=== PATIENT | male | born 1980 | race Caucasian/White ===

== ENCOUNTER 2016-09-29 07:16 | Emergency (ER) | payer OTHER ==
[~2016-09-29] VITALS: Ht 167.6 cm; Wt 124.3 kg
[~2016-09-29 07:16] MED LIST: BALSALAZIDE DI750 MG PO; CIPRO500 MG PO; FLAGYL500 MG PO; PREVACID30 MG PO; PRINZIDE 20-121 EACH PO; TYLENOL WITH C1 EACH PO; ZESTRIL,PRINIVI20 MG PO
[2016-09-29] MEDS ORDERED: ACIPHEX20 MG PO (07:56)
[2016-09-29] MEDS ORDERED: ONE DAILY FOR1 EACH PO (07:57)
[2016-09-29] MEDS ORDERED: ELAVIL10 MG PO (07:59)
[2016-09-29] MEDS ORDERED: FIORICET 50-301 EACH PO (09:12)
[2016-09-29 09:22] VITALS: BP 123/82
== END 2016-09-29 09:20 | disposition home or self-care (01) ==
LOC: EME 07:16
DX: G43.909 Migraine, unspecified, not intractable, without status migrainosus (principal); I10 Essential (primary) hypertension; Z87.891 Personal history of nicotine dependence
CPT/HCPCS: 99281; 99285; J1885; J2765; J7030

== ENCOUNTER 2017-12-10 17:11 | Observation (INO) | payer OTHER ==
[~2017-12-10] VITALS: Ht 170.2 cm; Wt 131.8 kg
[~2017-12-10 17:11] MED LIST changes: +ACIPHEX20 MG PO; +ELAVIL10 MG PO; +FIORICET 50-301 EACH PO; +ONE DAILY FOR1 EACH PO; -PRINZIDE 20-121 EACH PO; +ZESTORETIC 20-1 EAC1 PO
[2017-12-10 17:52] LABS: HEMATOCRIT 43.6 % (38.0-50.0); HEMOGLOBIN 15.6 G/DL (12.5-16.6); MCH 32.2 PG (29.0-34.0); MCHC 35.8 G/DL (30.0-36.0); MCV 89.9 FL (86-99); PLATELET COUNT 250 K/uL (156-360); RBC DIS.WIDTH-CV 12.8 % (11.8-14.6); RBC DIS.WIDTH-SD 41.9 % (39-53); RED BLOOD COUNT 4.85 M/uL (4.00-5.50); WHITE BLOOD COUNT 11.6 K/uL (4.1-10.2)
[2017-12-10 18:02] LABS: CHLORIDE 96 mEq/L (99-109); POTASSIUM 3.6 mEq/L (3.7-5.4); SODIUM 139 mEq/L (136-147)
[2017-12-10 18:04] LABS: GLUCOSE 121 mg/dL (70-99)
[2017-12-10 18:08] LABS: CREATININE 0.9 mg/dL (0.6-1.3); GFR ESTIMATE (CALCULATED) > 59 mL/min/ (58.99-99999)
[2017-12-10 18:09] LABS: UREA NITROGEN (BUN) 8 mg/dL (9-23)
[2017-12-10 18:16] LABS: TROP-I INTERPRETATION NEGATIVE; TROPONIN-I 0.02 ng/mL (0.0-0.30)
[2017-12-10] MEDS ORDERED: BUTALB-APAP-CA1 EACH PO (19:43)
[2017-12-10 19:44] LABS: TROP-I INTERPRETATION NEGATIVE; TROPONIN-I 0.02 ng/mL (0.0-0.30)
[2017-12-10] MEDS ORDERED: PROPRANOLOL HCL60 MG PO (19:45)
[2017-12-10] MEDS ORDERED: CETIRIZINE HCL10 M2 PO (19:45)
[2017-12-10] MEDS ORDERED: TIZANIDINE HCL2 MG PO (19:45)
[2017-12-10] MEDS ORDERED: TYLENOL325 M2 PO (19:46)
[2017-12-10] MEDS ORDERED: DAILY FIBER0.52 GM PO (19:46)
[2017-12-10 21:18] VITALS: BP 140/86
[2017-12-10 23:03] VITALS: BP 135/76
[2017-12-11 02:07] LABS: TROP-I INTERPRETATION NEGATIVE; TROPONIN-I 0.02 ng/mL (0.0-0.30)
[2017-12-11 05:21] VITALS: BP 125/76
[2017-12-11 07:35] LABS: HEMATOCRIT 44.1 % (38.0-50.0); MCH 31.4 PG (29.0-34.0); MCV 92.3 FL (86-99); PLATELET COUNT 236 K/uL (156-360); RBC DIS.WIDTH-CV 13.3 % (11.8-14.6); RBC DIS.WIDTH-SD 45.1 % (39-53); RED BLOOD COUNT 4.78 M/uL (4.00-5.50); WHITE BLOOD COUNT 8.7 K/uL (4.1-10.2)
[2017-12-11 07:55] LABS: TROP-I INTERPRETATION NEGATIVE; TROPONIN-I 0.01 ng/mL (0.0-0.30)
[2017-12-11 11:04] VITALS: BP 149/85
[2017-12-11] MEDS ORDERED: LYRICA25 MG PO (12:40)
== END 2017-12-11 14:09 | disposition home or self-care (01) ==
LOC: EME 17:11 → EDOF 20:17 → ENRESERV 20:18 → 4SOUTH 21:10
PROVIDERS: Emergency Medicine; Physician Assistant
DX: R07.9 Chest pain, unspecified (principal); G43.909 Migraine, unspecified, not intractable, without status migrainosus; R20.2 Paresthesia of skin; K21.9 Gastro-esophageal reflux disease without esophagitis; K51.90 Ulcerative colitis, unspecified, without complications; I10 Essential (primary) hypertension; Z89.022 Acquired absence of left finger(s); Z85.820 Personal history of malignant melanoma of skin; Z87.891 Personal history of nicotine dependence; Z82.3 Family history of stroke; Z88.5 Allergy status to narcotic agent
CPT/HCPCS: 70450; 71046; 80048; 84484; 85027; 93005; 99281; 99285; G0378

== ENCOUNTER 2018-03-10 11:25 | Emergency (ER) | payer OTHER ==
[~2018-03-10] VITALS: Ht 170.2 cm; Wt 125.9 kg
[~2018-03-10 11:25] MED LIST changes: +BUTALB-APAP-CA1 EACH PO; +CETIRIZINE HCL10 M2 PO; +DAILY FIBER0.52 GM PO; +LYRICA25 MG PO; +PROPRANOLOL HCL60 MG PO; +TIZANIDINE HCL2 MG PO; +TYLENOL325 M2 PO
[2018-03-10 12:18] LABS: BASOPHIL (%) 0.7 % (0-1); BASOPHIL COUNT 0.1 K/uL (0-0.1); EOSINOPHIL (%) 4.1 % (0-5); EOSINOPHIL COUNT 0.6 K/uL (0-0.3); HEMATOCRIT 40.8 % (38.0-50.0); HEMOGLOBIN 13.2 G/DL (12.5-16.6); IMMATURE GRANULOCYTE (%) 0.4 % (0.0-0.7); LYMPHOCYTE (%) 18.7 % (15-42); LYMPHOCYTE COUNT 2.5 K/uL (1.0-2.8); MCH 30.3 PG (29.0-34.0); MCHC 32.4 G/DL (30.0-36.0); MCV 93.8 FL (86-99); MONOCYTE (%) 6.1 % (3-12); MONOCYTE COUNT 0.8 K/uL (0-0.8); NEUTROPHIL COUNT 9.5 K/uL (1.8-6.4); RBC DIS.WIDTH-CV 13.1 % (11.8-14.6); RBC DIS.WIDTH-SD 45.1 % (39-53); RED BLOOD COUNT 4.35 M/uL (4.00-5.50); WHITE BLOOD COUNT 13.6 K/uL (4.1-10.2)
[2018-03-10 12:19] LABS: PLATELET COUNT 586 K/uL (156-360)
[2018-03-10 12:24] LABS: INTER. NORMALIZED RATIO 1.7
[2018-03-10 12:26] LABS: CHLORIDE 100 mEq/L (99-109); POTASSIUM 4.5 mEq/L (3.7-5.4); PTT 36.4 SEC (25-37); SODIUM 139 mEq/L (136-147)
[2018-03-10 12:28] LABS: GLUCOSE 99 mg/dL (70-99)
[2018-03-10 12:32] LABS: CREATININE 0.9 mg/dL (0.6-1.3); GFR ESTIMATE (CALCULATED) > 59 mL/min/ (58.99-99999)
[2018-03-10 12:33] LABS: UREA NITROGEN (BUN) 11 mg/dL (9-23)
[2018-03-10 12:38] LABS: TROP-I INTERPRETATION NEGATIVE; TROPONIN-I 0.02 ng/mL (0.0-0.30)
[2018-03-10 14:18] VITALS: BP 112/64
== END 2018-03-10 14:18 | disposition home or self-care (01) ==
LOC: EME 11:25
PROVIDERS: Emergency Medicine
DX: R00.2 Palpitations (principal); I48.92 Unspecified atrial flutter; Z95.2 Presence of prosthetic heart valve; Z79.01 Long term (current) use of anticoagulants; I10 Essential (primary) hypertension; K21.9 Gastro-esophageal reflux disease without esophagitis; F41.9 Anxiety disorder, unspecified; Z87.11 Personal history of peptic ulcer disease; Z85.820 Personal history of malignant melanoma of skin; Z87.891 Personal history of nicotine dependence; Z88.5 Allergy status to narcotic agent
CPT/HCPCS: 71045; 80048; 84484; 85025; 85610; 85730; 99281; 99284